=== PATIENT | male | born 1990 | race Caucasian/White ===

== ENCOUNTER 2024-10-04 23:10 | Observation (INO) ==
[2024-10-04] MEDS: MoRPHine SULFATE 4 MG/ML 1 ML CARP\\VIAL IV STA (23:39)
[2024-10-04] MEDS: ONDANSETRON INJ 2 MG/ML 2 ML VIAL IV STA (23:39)
[2024-10-04 23:55] LABS: iSTAT Creatinine 1.3 mg/dl (0.6-1.3); iSTAT Ionized Calcium 1.3 mmol/l (1.12-1.32); iSTAT Potassium 3.9 mmol/L (3.3-5.0)
[2024-10-04 23:58] LABS: Appearance Urine Clear (Clear); Bilirubin Urine Negative (Negative); Blood Urine Negative (Negative); Color Urine Yellow; Glucose Urine UA Negative (Negative); Ketones Urine Negative (Negative); Leukocyte Esterase Urine Negative (Negative); Nitrite Urine Negative (Negative); Protein Urine Negative (Negative); Specific Gravity Urine 1.022 (1.000-1.030); Urobilinogen Urine Negative (Negative); pH Urine 5.5 (4.5-7.5)
[2024-10-04] MEDS: OPTIRAY 320 100ml IV ONE (23:58)
[2024-10-05 00:07] LABS: Basophils # (auto) 0.03 K/uL (0.00-0.20); Basophils % (auto) 0.3 %; Eosinophils % (auto) 0.8 %; Hematocrit (blood only) 45.3 % (42.0-52.0); Hemoglobin 16.2 g/dl (14.0-18.0); Immature Granulocytes # (auto) 0.04 K/uL (0.01-0.20); Immature Granulocytes % (auto) 0.3 %; Lymphocytes # (auto) 2.25 K/uL (1.20-3.40); Mean Corpuscular Hemoglobin 30.2 pg (25.0-34.0); Mean Corpuscular Hgb Conc 35.8 g/dL (32.0-36.0); Mean Corpuscular Volume 84.4 fL (80.0-100.0); Monocytes # (auto) 0.51 K/uL (0.11-0.59); Monocytes % (auto) 4.3 %; Neutrophils # (auto) 8.93 K/uL (1.40-6.50); Neutrophils % (auto) 75.3 %; Platelet Count 287 K/uL (130-400); RDW Coefficient of Variation 11.7 % (11.5-14.5); RDW Standard Deviation 35.5 fL (36.4-46.3); Red Blood Count 5.37 M/uL (4.70-6.10); White Blood Count 11.86 K/ul (4.8-10.8)
[2024-10-05 00:18] LABS: Albumin Globulin Ratio 2.5 (0.9-2); Albumin Level 5.4 gm/dl (3.4-5.0); BUN Creatinine Ratio 16.4 (10-20); Bilirubin,Total 0.6 mg/dl (0.2-1.0); Calcium 10.9 mg/dl (8.6-10.3); Globulin 2.2 gm/dl (2.5-4.0); Potassium 3.9 mmol/L (3.5-5.1); Total Protein 7.6 gm/dl (6.0-8.3)
[2024-10-05] MEDS: fentaNYL citrate PF 100 MCG/2 ML VIAL IV STA ×2 (00:34→01:46)
--- NOTE | 2024-10-05 00:34 | Emergency Department Note ---
ED Visit Note Physician Evaluation Note: Patient was seen in conjunction with the midlevel provider. Please see the midlevel provider note for full details of the patient's visit. I have personally evaluated and examined this patient. Patient presented to the ED with 7 to 8 hours of right lower quadrant abdominal pain with nausea. On my examination the patient does have tenderness in the right lower quadrant without rigidity. CT imaging of the abdomen pelvis was obtained that is suggestive of mild acute appendicitis. Case was discussed with on-call general surgery, Dr. Ellison, and he did evaluate the patient at the bedside and decision was made for operative intervention. Patient was in agreement to this plan and he was admitted in stable condition for definitive care. I agree with assessment and plan of JANNA Maciel DO .
--- NOTE | 2024-10-05 00:37 | CT Scan Report ---
Exam(s): CT ABDOMEN + PELVIS With Contrast IV Amt: 93 ML OPTIRAY 320 EXAM: CT Abdomen and Pelvis With Intravenous Contrast CLINICAL HISTORY: Reason for exam: right lower quadrant pain. TECHNIQUE: Axial computed tomography images of the abdomen and pelvis with intravenous contrast. CTDI is 25.81 mGy and DLP is 1362.65 mGy-cm. Automated exposure control was utilized for the study. A dose lowering technique was utilized adhering to the principles of ALARA. CONTRAST: Patient received 93 ML OPTIRAY 320 of IV contrast COMPARISON: No relevant prior studies available. FINDINGS: Lung bases: Unremarkable. No mass. No consolidation. ABDOMEN: Liver: There is a small probable 0.8 cm cyst in the posterior right hepatic lobe. No additional hepatic abnormalities are noted. Gallbladder and bile ducts: Unremarkable. No calcified stones. No ductal dilation. Pancreas: Unremarkable. No mass. No ductal dilation. Spleen: Unremarkable. No splenomegaly. Adrenals: Unremarkable. No mass. Kidneys and ureters: Unremarkable. No solid mass. No hydronephrosis. Stomach and bowel: Unremarkable. No obstruction. No mucosal thickening. PELVIS: Appendix: The appendix is mildly distended and measures up to 11 mm. There is mild subtle periappendiceal inflammatory stranding. No evidence of perforation or abscess. Findings are consistent with early acute appendicitis. Bladder: Unremarkable. No mass. Reproductive: Unremarkable as visualized. ABDOMEN and PELVIS: Intraperitoneal space: Unremarkable. No free air. No significant fluid collection. Bones/joints: No acute fracture. No dislocation. Soft tissues: Unremarkable. Vasculature: Unremarkable. No abdominal aortic aneurysm. Lymph nodes: Unremarkable. No enlarged lymph nodes. IMPRESSION: The appendix is mildly distended and measures up to 11 mm. There is mild subtle periappendiceal inflammatory stranding. No evidence of perforation or abscess. Findings are consistent with early acute appendicitis. Communications: Call Doctor Appendicitis Electronically signed by: Tenzin Wilson MD 10/05/24 00:36 AM
--- NOTE | 2024-10-05 00:51 | Emergency Department Note ---
ED Provider Note History of Present Illness Chief Complaint: Abdominal Pain Stated Complaint: ABD PAIN, NAUSEA, Time Seen by Provider: 10/04/24 23:19 Source: patient Mode of arrival: ambulatory Limitations: no limitations Patient is a 34-year-old male who presents to the emergency department with complaints of right lower quadrant pain. Patient states that his pain started approximately 5 hours prior to his arrival. Patient notes that he has had some intermittent nausea but denies any vomiting. Patient denies any urinary symptoms. Home Medications Medication Instructions Recorded Confirmed Type No Known Home Medications 10/05/24 10/05/24 History Allergies Allergy/AdvReac Type Severity Reaction Status Date / Time No Known Allergies Allergy Verified 10/05/24 01:21 Past Med/Surg History Problem List Acute appendicitis (Acute) Social History Smoking Status: Current every day smoker Tobacco Type: Cigarettes Preferred Language: Yi Feels Safe at Home: Yes Physical Exam Vital Signs Vital Signs - 24 hr 10/04/24 23:14 10/04/24 23:25 10/04/24 23:37 Temperature 36.6 C Temperature Source Temporal Artery Scan Pulse Rate 82 69 Pulse Rate [Apical] 62 Respiratory Rate 18 18 Respiratory Effort / Characteristics Non-Labored Spontaneous Non-Labored Respiratory Depth Normal Normal Respiratory Pattern Regular Regular Blood Pressure 154/107 H Blood Pressure [Right Arm] 125/95 Blood Pressure Mean 122 Blood Pressure Mean [Right Arm] 105 Pulse Oximetry 100 99 100 Oxygen Delivery Method Room Air Room Air Room Air Sepsis Recent Fever Within 48 Hours No Sepsis New/Unexplained Change in Mental Status N/A Sepsis Action Taken by Nursing No Action Required 10/04/24 23:40 10/04/24 23:43 10/04/24 23:57 Temperature Temperature Source Pulse Rate 82 65 Pulse Rate [Apical] Respiratory Rate 18 Respiratory Effort / Characteristics Respiratory Depth Respiratory Pattern Blood Pressure 125/95 148/93 H Blood Pressure [Right Arm] Blood Pressure Mean 105 126 Blood Pressure Mean [Right Arm] Pulse Oximetry 100 Oxygen Delivery Method Room Air Sepsis Recent Fever Within 48 Hours Sepsis New/Unexplained Change in Mental Status Sepsis Action Taken by Nursing 10/05/24 00:00 10/05/24 00:33 10/05/24 01:00 Temperature Temperature Source Pulse Rate 85 89 74 Pulse Rate [Apical] Respiratory Rate 18 14 18 Respiratory Effort / Characteristics Respiratory Depth Respiratory Pattern Blood Pressure 140/73 117/61 116/61 Blood Pressure [Right Arm] Blood Pressure Mean 95 79 82 Blood Pressure Mean [Right Arm] Pulse Oximetry 92 96 95 Oxygen Delivery Method Room Air Room Air Room Air Sepsis Recent Fever Within 48 Hours Sepsis New/Unexplained Change in Mental Status Sepsis Action Taken by Nursing VITAL SIGNS - Vital signs and nursing notes were reviewed. GENERAL -34-year-old male appearing his stated age who appears to be in moderate pain during exam HEAD - NC/AT. EYES - PERRL with EOMI bilaterally. Conjunctiva pink and moist with no injection noted. LUNGS - Chest wall symmetric without accessory muscle use, intercostals retractions, or central cyanosis. Breath sounds clear throughout all mor[place]. No wheezes, rales, or rhonchi appreciated. CARDIAC - RRR with S1/S2. No murmur, rubs, or gallops appreciated. ABDOMEN - Abdominal contour without pulsations or visible masses. Negative [place]'s or Gross Kohli's Signs. BS normoactive all four quadrants. Moderate tenderness to palpation appreciated in the right lower quadrant. No increased rebound Tenderness. No palpable masses, hepatosplenomegaly, or ascites noted. NEUROLOGIC - Sensory intact to light touch throughout. PSYCH - A&Ox3 and cooperates fully with examiner. Pt is very pleasant and interacts well with examiner. Course Administered Medications Discontinued Medications Fentanyl Citrate (Fentanyl Citrate Pf 100 Mcg/2 Ml Vial) 50 mcg IV NOW STA Stop: 10/05/24 00:27 Last Admin: 10/05/24 00:34 Dose: 50 mcg Documented By: BRANDON Fentanyl Citrate (Fentanyl Citrate Pf 100 Mcg/2 Ml Vial) 50 mcg IV NOW STA Stop: 10/05/24 01:43 Last Admin: 10/05/24 01:46 Dose: 50 mcg Documented By: STONE Piperacillin Sod/Tazobactam Sod (Zosyn) 4.5 gm in 100 mls @ 200 mls/hr IV NOW ONE; Protocol Stop: 10/05/24 01:21 Last Infusion: 10/05/24 01:39 Dose: Infused Documented By: Admin: 10/05/24 01:06 Dose: 200 mls/hr Documented By: STONE Ioversol (Optiray 320 100ml) 100 ml IV ONCE ONE Stop: 10/04/24 23:58 Last Admin: 10/04/24 23:58 Dose: 93 ml Documented By: LASHELL Morphine Sulfate (Morphine Sulfate 4 Mg/Ml 1 Ml Carp\Vial) 4 mg IV NOW STA Stop: 10/04/24 23:25 Last Admin: 10/04/24 23:39 Dose: 4 mg Documented By: STONE Ondansetron HCl (Ondansetron Inj 2 Mg/Ml 2 Ml Vial) 4 mg IV NOW STA Stop: 10/04/24 23:25 Last Admin: 10/04/24 23:39 Dose: 4 mg Documented By: STONE Medical Decision Making Differential Diagnosis Differential diagnoses includes gastritis, gastroenteritis, IBS, small bowel obstruction, pancreatitis, peritonitis, constipation, appendicitis, abdominal abcess, among others. Medical Records Attestation: I reviewed the patient's medical records. Home Medications was personally reviewed by me Laboratory Data Attestation: I reviewed the patient's lab results. 10/04/24 23:35 10/04/24 23:35 Lab Results 10/04/24 10/04/24 Range/Units 23:35 23:43 WBC 11.86 H (4.8-10.8) K/ul RBC 5.37 (4.70-6.10) M/uL Hgb 16.2 (14.0-18.0) g/dl POC Hgb 16.0 (14.0-18.0) g/dl Hct 45.3 (42.0-52.0) % POC Hct 47 (42-52) % MCV 84.4 (80.0-100.0) fL MCH 30.2 (25.0-34.0) pg MCHC 35.8 (32.0-36.0) g/dL RDW Std Deviation 35.5 L (36.4-46.3) fL RDW Coeff of Roberto 11.7 (11.5-14.5) % Plt Count 287 (130-400) K/uL MPV 11.0 (9.4-12.4) fL Immature Gran % (Auto) 0.3 % Neut % (Auto) 75.3 % Lymph % (Auto) 19.0 % [place] % (Auto) 4.3 % Eos % (Auto) 0.8 % Baso % (Auto) 0.3 % Neut # (Auto) 8.93 H (1.40-6.50) K/uL Lymph # (Auto) 2.25 (1.20-3.40) K/uL [place] # (Auto) 0.51 (0.11-0.59) K/uL Eos # (Auto) 0.10 (0.00-0.50) K/uL Baso # (Auto) 0.03 (0.00-0.20) K/uL Immature Gran # (Auto) 0.04 (0.01-0.20) K/uL POC Sodium 139 (135-144) mmol/L Sodium 138 (136-145) mmol/L POC Potassium 3.9 (3.3-5.0) mmol/L Potassium 3.9 (3.5-5.1) mmol/L POC Chloride 102 (101-112) mmol/L Chloride 101 (98-107) mmol/L Carbon Dioxide 28 (21-32) mmol/L POC Total CO2 25 (24-31) mmol/L Anion Gap 9 (3-11) POC Anion Gap 18.0 (16-25) mmol/L POC BUN 19 H (7-18) mg/dl BUN 19 (6-23) mg/dl Creatinine 1.16 (0.6-1.4) mg/dl POC Creatinine 1.3 (0.6-1.3) mg/dl Est Cr Clr Drug Dosing 114.0 ml/min eGFR 84.76 BUN/Creatinine Ratio 16.4 (10-20) Glucose 117 H (70-99(Fasting)) mg/dl POC Glucose (other) 116 H (70-99) mg/dl Calcium 10.9 H (8.6-10.3) mg/dl POC Ioniz Calcium [place] 1.30 (1.12-1.32) mmol/l Total Bilirubin 0.6 (0.2-1.0) mg/dl AST 18 (13-39) U/L ALT 33 (7-52) U/L Alkaline Phosphatase 56 (34-104) U/L Total Protein 7.6 (6.0-8.3) gm/dl Albumin 5.4 H (3.4-5.0) gm/dl Globulin 2.2 L (2.5-4.0) gm/dl Albumin/Globulin Ratio 2.5 H (0.9-2) Lipase 58 (11-82) U/L Urine Color Yellow Urine Appearance Clear (Clear) Urine pH 5.5 (4.5-7.5) Ur Specific [place] 1.022 (1.000-1.030) Urine Protein Negative (Negative) Urine Glucose (UA) Negative (Negative) Urine Ketones Negative (Negative) Urine Blood Negative (Negative) Urine Nitrite Negative (Negative) Urine Bilirubin Negative (Negative) Urine Urobilinogen Negative (Negative) Ur Leukocyte Esterase Negative (Negative) Imaging Data Radiologist's Impression: Abdomen/Pelvis CT 10/04/24 23:25 CR Exam(s): CT ABDOMEN + PELVIS With Contrast IV Amt: 93 ML OPTIRAY 320 EXAM: CT Abdomen and Pelvis With Intravenous Contrast CLINICAL HISTORY: Reason for exam: right lower quadrant pain. TECHNIQUE: Axial computed tomography images of the abdomen and pelvis with intravenous contrast. CTDI is 25.81 mGy and DLP is 1362.65 mGy-cm. Automated exposure control was utilized for the study. A dose lowering technique was utilized adhering to the principles of ALARA. CONTRAST: Patient received 93 ML OPTIRAY 320 of IV contrast COMPARISON: No relevant prior studies available. FINDINGS: Lung bases: Unremarkable. No mass. No consolidation. ABDOMEN: Liver: There is a small probable 0.8 cm cyst in the posterior right hepatic lobe. No additional hepatic abnormalities are noted. Gallbladder and bile ducts: Unremarkable. No calcified stones. No ductal dilation. Pancreas: Unremarkable. No mass. No ductal dilation. Spleen: Unremarkable. No splenomegaly. Adrenals: Unremarkable. No mass. Kidneys and ureters: Unremarkable. No solid mass. No hydronephrosis. Stomach and bowel: Unremarkable. No obstruction. No mucosal thickening. PELVIS: Appendix: The appendix is mildly distended and measures up to 11 mm. There is mild subtle periappendiceal inflammatory stranding. No evidence of perforation or abscess. Findings are consistent with early acute appendicitis. Bladder: Unremarkable. No mass. Reproductive: Unremarkable as visualized. ABDOMEN and PELVIS: Intraperitoneal space: Unremarkable. No free air. No significant fluid collection. Bones/joints: No acute fracture. No dislocation. Soft tissues: Unremarkable. Vasculature: Unremarkable. No abdominal aortic aneurysm. Lymph nodes: Unremarkable. No enlarged lymph nodes. IMPRESSION: The appendix is mildly distended and measures up to 11 mm. There is mild subtle periappendiceal inflammatory stranding. No evidence of perforation or abscess. Findings are consistent with early acute appendicitis. Communications: Call Doctor Appendicitis Electronically signed by: Tenzin Wilson MD 10/05/24 00:36 AM [facility] Narrative Patient is a 34-year-old male who presents to the emergency department with complaints of right lower quadrant pain. Patient states that his pain started approximately 5 hours prior to his arrival. Patient notes that he has had some intermittent nausea but denies any vomiting. Patient denies any urinary symptoms. Patient was evaluated by myself and findings are noted in the physical exam above. Patient was ordered IV placement, lab work, urinalysis, and a CT of the abdomen pelvis. Patient was also ordered morphine and Zofran for his pain and nausea. Patient's lab work resulted and the patient had an elevated white blood cell count of 11.86. The rest of the patient's lab work was unremarkable. There is no indication of anemia or electrolyte imbalance. The patient's urinalysis resulted and was negative, with no signs of blood or infection. Upon reevaluation of the patient he stated that his pain was still an 8/10 and felt that it was increasing again. Patient was ordered a dose of IV fentanyl for his pain. Dr. Vinicio Ellison of general surgery spoke with Dr. Thao regarding this patient to inquire if the patient may have an acute appendicitis. We informed Dr. lElison that we were still waiting on the radiologist read of his CT, but the patient was presenting with symptoms and an exam consistent with appendicitis. Patient CT was interpreted by radiology to show an acute early appendicitis. This finding is consistent with the patient's presentation and complaints. Dr. Vinicio Ellison arrived in the emergency department is made aware that the patient did have an acute appendicitis. I gave Dr. Ellison a brief report on the patient and let him know that the patient has had 2 doses of pain medication, with still complaining of some discomfort and that he has not had any p.o. food since approximately 330 this afternoon and drank some water approximately 3 hours [address] I told Dr. Ellison that I made the patient aware that he was likely going to be going to the OR and the Dr. Ellison would be in to see him. Please refer to Dr. Ellison's documentation for further evaluation and management of this patient. The patient will be going to the OR momentarily. Impression Acute appendicitis Discharge Plan Visit Data Chief Complaint: Abdominal Pain Stated Complaint: ABD PAIN, NAUSEA, ED Provider: Romain Thao ED Midlevel Provider: Gloria Hernandes Discharge Problem: Acute appendicitis Patient Disposition: Being Evaluated by Surgeon Forms Stand Alone Forms: [employer] Prescriptions Prescriptions: No Action No Known Home Medications Referrals Referrals: PCP,NO [Primary Care Provider] - Discharge Problem: Acute appendicitis Qualifiers: Acute appendicitis type: unspecified acute appendicitis type Qualified Code(s): K35.80 - Unspecified acute appendicitis
[2024-10-05] MEDS: PIPERACILLIN/TAZOBACTAM 4.5 GM/100 ML BAG IV ONE (01:06)
--- NOTE | 2024-10-05 01:09 | History & Physical Report ---
Date of Service October 05, 2024 Assessment & Plan (1) Acute appendicitis: Plan 34-year-old gentleman with acute appendicitis. I discussed the risks and benefits of a laparoscopic appendectomy with him. All his questions were answered. We also discussed postoperative recovery and restrictions. He is agreeable to proceed. Consent has been obtained. We will take him to the operating room at the earliest convenience. History of Present Illness Primary Care Provider: NO PCP 34-year-old gentleman presents with a 7-hour history of abdominal pain. He began in the mid abdomen and has progressed to the right lower quadrant. It is sharp and stabbing character. It is accompanied with nausea. He has not vomited. He denies fevers or chills. He has had 2 loose bowel movements this afternoon. Last food was 10 hours ago. Past Med/Surg History Problem List Acute appendicitis (Acute) Social History Smoking Status: Current every day smoker Tobacco Type: Cigarettes Preferred Language: [place] Feels Safe at Home: Yes Review of Systems Review of Systems: All systems reviewed & are unremarkable except as noted in HPI & below Physical Exam Constitutional: WD/WN, vitals as above Eyes: PERRL, conjunctivae normal, anicteric sclerae Neck: trachea midline, no thyromegaly Respiratory: normal respiratory effort; no respiratory distress and no labored breathing Cardiovascular: Rate/Rhythm: regular rate and regular rhythm Gastrointestinal (Abdomen): Inspection/Auscultation: abdomen normal to inspection; abdomen not distended Percussion/Palpation: + abdomen tender ( RLQ) and abdomen soft; no guarding and abdomen not rigid positive Rovsing sign Skin: no rashes, warm and dry Psychiatric: A+Ox3, euthymic affect Results & Data Results & Data Vital Signs (Past 12 Hours) Vital Signs Temp Pulse Pulse Resp BP BP Pulse Ox 10/05/24 00:33 89 14 117/61 96 10/05/24 00:00 85 18 140/73 92 10/04/24 23:57 148/93 H 10/04/24 23:43 65 10/04/24 23:40 82 18 125/95 100 10/04/24 23:37 69 100 10/04/24 23:25 62 18 125/95 99 10/04/24 23:14 36.6 C 82 18 154/107 H 100 O2 Del Method 10/05/24 00:33 Room Air 10/05/24 00:00 Room Air 10/04/24 23:57 10/04/24 23:43 10/04/24 23:40 Room Air 10/04/24 23:37 Room Air 10/04/24 23:25 Room Air 10/04/24 23:14 Room Air Laboratory Results 10/04/24 10/04/24 Range/Units 23:43 23:35 WBC 11.86 H (4.8-10.8) K/ul RBC 5.37 (4.70-6.10) M/uL Hgb 16.2 (14.0-18.0) g/dl POC Hgb 16.0 (14.0-18.0) g/dl Hct 45.3 (42.0-52.0) % POC Hct 47 (42-52) % MCV 84.4 (80.0-100.0) fL MCH 30.2 (25.0-34.0) pg MCHC 35.8 (32.0-36.0) g/dL RDW Std Deviation 35.5 L (36.4-46.3) fL RDW Coeff of Roberto 11.7 (11.5-14.5) % Plt Count 287 (130-400) K/uL MPV 11.0 (9.4-12.4) fL Immature Gran % (Auto) 0.3 % Neut % (Auto) 75.3 % Lymph % (Auto) 19.0 % [place] % (Auto) 4.3 % Eos % (Auto) 0.8 % Baso % (Auto) 0.3 % Neut # (Auto) 8.93 H (1.40-6.50) K/uL Lymph # (Auto) 2.25 (1.20-3.40) K/uL [place] # (Auto) 0.51 (0.11-0.59) K/uL Eos # (Auto) 0.10 (0.00-0.50) K/uL Baso # (Auto) 0.03 (0.00-0.20) K/uL Immature Gran # (Auto) 0.04 (0.01-0.20) K/uL POC Sodium 139 (135-144) mmol/L Sodium 138 (136-145) mmol/L POC Potassium 3.9 (3.3-5.0) mmol/L Potassium 3.9 (3.5-5.1) mmol/L POC Chloride 102 (101-112) mmol/L Chloride 101 (98-107) mmol/L Carbon Dioxide 28 (21-32) mmol/L POC Total CO2 25 (24-31) mmol/L Anion Gap 9 (3-11) POC Anion Gap 18.0 (16-25) mmol/L POC BUN 19 H (7-18) mg/dl BUN 19 (6-23) mg/dl Creatinine 1.16 (0.6-1.4) mg/dl POC Creatinine 1.3 (0.6-1.3) mg/dl Est Cr Clr Drug Dosing 114.0 ml/min eGFR 84.76 BUN/Creatinine Ratio 16.4 (10-20) Glucose 117 H (70-99(Fasting)) mg/dl POC Glucose (other) 116 H (70-99) mg/dl Calcium 10.9 H (8.6-10.3) mg/dl POC Ioniz Calcium [place] 1.30 (1.12-1.32) mmol/l Total Bilirubin 0.6 (0.2-1.0) mg/dl AST 18 (13-39) U/L ALT 33 (7-52) U/L Alkaline Phosphatase 56 (34-104) U/L Total Protein 7.6 (6.0-8.3) gm/dl Albumin 5.4 H (3.4-5.0) gm/dl Globulin 2.2 L (2.5-4.0) gm/dl Albumin/Globulin Ratio 2.5 H (0.9-2) Lipase 58 (11-82) U/L Urine Color Yellow Urine Appearance Clear (Clear) Urine pH 5.5 (4.5-7.5) Ur Specific [place] 1.022 (1.000-1.030) Urine Protein Negative (Negative) Urine Glucose (UA) Negative (Negative) Urine Ketones Negative (Negative) Urine Blood Negative (Negative) Urine Nitrite Negative (Negative) Urine Bilirubin Negative (Negative) Urine Urobilinogen Negative (Negative) Ur Leukocyte Esterase Negative (Negative) Diagnostic Findings ADDENDUM: 10/05/24 00:46 Call Doctor Regarding Appendicitis, called Dr. Thao on 10/05 00:46 (-05:00) Electronically signed by: Tenzin Wilson MD Electronically signed by: Tenzin Wilson MD 10/05/24 00:36 AM ADDENDUM END Exam(s): CT ABDOMEN + PELVIS With Contrast IV Amt: 93 ML OPTIRAY 320 EXAM: CT Abdomen and Pelvis With Intravenous Contrast CLINICAL HISTORY: Reason for exam: right lower quadrant pain. TECHNIQUE: Axial computed tomography images of the abdomen and pelvis with intravenous contrast. CTDI is 25.81 mGy and DLP is 1362.65 mGy-cm. Automated exposure control was utilized for the study. A dose lowering technique was utilized adhering to the principles of ALARA. CONTRAST: Patient received 93 ML OPTIRAY 320 of IV contrast COMPARISON: No relevant prior studies available. FINDINGS: Lung bases: Unremarkable. No mass. No consolidation. ABDOMEN: Liver: There is a small probable 0.8 cm cyst in the posterior right hepatic lobe. No additional hepatic abnormalities are noted. Gallbladder and bile ducts: Unremarkable. No calcified stones. No ductal dilation. Pancreas: Unremarkable. No mass. No ductal dilation. Spleen: Unremarkable. No splenomegaly. Adrenals: Unremarkable. No mass. Kidneys and ureters: Unremarkable. No solid mass. No hydronephrosis. Stomach and bowel: Unremarkable. No obstruction. No mucosal thickening. PELVIS: Appendix: The appendix is mildly distended and measures up to 11 mm. There is mild subtle periappendiceal inflammatory stranding. No evidence of perforation or abscess. Findings are consistent with early acute appendicitis. Bladder: Unremarkable. No mass. Reproductive: Unremarkable as visualized. ABDOMEN and PELVIS: Intraperitoneal space: Unremarkable. No free air. No significant fluid collection. Bones/joints: No acute fracture. No dislocation. Soft tissues: Unremarkable. Vasculature: Unremarkable. No abdominal aortic aneurysm. Lymph nodes: Unremarkable. No enlarged lymph nodes. IMPRESSION: The appendix is mildly distended and measures up to 11 mm. There is mild subtle periappendiceal inflammatory stranding. No evidence of perforation or abscess. Findings are consistent with early acute appendicitis. Communications: Call Doctor Appendicitis Electronically signed by: Tenzin Wilson MD 10/05/24 00:36 AM (1) Acute appendicitis Acute appendicitis type: unspecified acute appendicitis type Qualified Code(s): K35.80 - Unspecified acute appendicitis
--- NOTE | 2024-10-05 01:35 | Anesthesiology Consultation ---
Date of Service October 05, 2024 Assessment & Plan Chart Review Chart Review: Acceptable Risk for Surgery Consults Requested none History Surgery Operation Date: 10/05/24 01:10 Proposed Procedures p Laparoscopic Appendectomy - Vinicio Ellison MD Height/Weight Height: 6 ft 2 in Weight: 101.2 kg Allergies Allergy/AdvReac Type Severity Reaction Status Date / Time No Known Allergies Allergy Verified 10/05/24 01:21 Medications Home Medications Medication Instructions Recorded Confirmed Last Taken No Known Home Medications 10/05/24 10/05/24 Unknown NPO Date Last Intake of Fluids: 10/04/24 Time Last Intake of Fluids: 21:30 Date Last Intake of Solids: 10/04/24 Time Last Intake of Solids: 16:00 Social History Smoking Status: Current every day smoker Physical Exam Vital Signs Last Vital Signs Temp 36.6 C 10/04/24 23:14 Pulse 74 10/05/24 01:00 Resp 18 10/05/24 01:00 BP 116/61 10/05/24 01:00 Pulse Ox 95 10/05/24 01:00 O2 Del Method Room Air 10/05/24 01:00 Testing Laboratory Results 10/04/24 23:35 10/04/24 23:35 Urine Color Yellow 10/04/24 23:35 Urine Appearance Clear (Clear) 10/04/24 23:35 Urine pH 5.5 (4.5-7.5) 10/04/24 23:35 Ur Specific [place] 1.022 (1.000-1.030) 10/04/24 23:35 Urine Protein Negative (Negative) 10/04/24 23:35 Urine Glucose (UA) Negative (Negative) 10/04/24 23:35 Urine Ketones Negative (Negative) 10/04/24 23:35 Urine Nitrite Negative (Negative) 10/04/24 23:35 Ur Leukocyte Esterase Negative (Negative) 10/04/24 23:35 10/04/24 23:43 POC Glucose (other) 116 H
[2024-10-05] MEDS ORDERED: ePHEDrine sulfate 50 MG/ML AMP IV PRN (01:36)
[2024-10-05] MEDS ORDERED: ONDANSETRON INJ 2 MG/ML 2 ML VIAL IV PRN ×2 (01:36→04:33)
[2024-10-05] MEDS ORDERED: PROMETHAZINE HCL 6.25 MG in SODIUM CHLORIDE 0.9% 50 ML IV PRN (01:36)
[2024-10-05] MEDS ORDERED: fentaNYL citrate PF 100 MCG/2 ML VIAL IV PRN (01:36)
[2024-10-05] MEDS ORDERED: ATROPINE SULFATE 0.1 MG/ML 10ML SYR IV PRN (01:36)
[2024-10-05] MEDS ORDERED: MIDAZOLAM HCL 1 MG/ML 2ML VIAL ONE (01:40)
[2024-10-05] MEDS ORDERED: PROPOFOL IV EMULSION 10 MG/ML 20 ML VIAL IV ONE (01:41)
[2024-10-05] MEDS ORDERED: fentaNYL citrate PF 100 MCG/2 ML VIAL ONE ×2 (01:41→03:07)
[2024-10-05] MEDS ORDERED: ROCURONIUM BROMIDE 10 MG/ML 5 ML VIAL IV ONE ×2 (01:41→02:49)
[2024-10-05] MEDS ORDERED: LIDOCAINE 2% 2 ML VIAL/AMP(20MG/ML) INFIL ONE (01:41)
[2024-10-05] MEDS ORDERED: ONDANSETRON INJ 2 MG/ML 2 ML VIAL ONE (01:41)
[2024-10-05] MEDS ORDERED: DEXAMETHASONE SOD INJ 4 MG/ML VIAL ONE (01:41)
[2024-10-05] MEDS ORDERED: SUGAMMADEX SODIUM 200 MG/2 ML VIAL IV ONE ×2 (01:47→03:03)
--- NOTE | 2024-10-05 03:03 | Operative Report ---
Post Operative Report Pre & Post Diagnosis Operation Date: 10/05/24 01:10 Pre-Op Diagnosis: Appendicitis Post-Op Diagnosis: Appendicitis I identified the patient and participated in the time-out.: Yes Procedure Operation Date: 10/05/24 01:10 Actual Procedures p Laparoscopic Appendectomy(Not Applicable) - Vinicio Ellison MD Surgeon Vinicio Ellison MD Pneumatic Tool Operator None Estimated Blood Loss 5 Findings Consistent with Post-Op Diagnosis acute appendicitis, no perforation Specimens appendix Drains none Anesthesia Type General Complications none Description of Procedure the patient was taken to the operating room, and placed supine on the operating table. A timeout was performed, perioperative antibiotics were administered, SCD boots were placed. After adequate anesthesia and analgesia was obtained, the abdomen was prepped and draped in the normal sterile fashion. A 1 cm incision was made in the supraumbilical region and carried down to the level of the fascia. A trach hook was used to grasp the fascia and elevated and a varies needle was used to enter the abdominal cavity. The abdomen was insufflated to a pressure of 15 mmHg, and a 5 mm trocar was placed in this location. A 5 mm 30 degree laparoscope was placed into the abdominal cavity, and the abdomen was surveyed. The patient was placed in Trendelenburg and slightly to the left. One 5 mm trocar was placed in the right upper quadrant, and one 12 mm trocar was placed in the left lower quadrant under direct visualization. The right colon was identified and traced down to the cecum. The appendix was identified and elevated anteriorly and medially. A window was created at the base of the appendix with a [place] dissector. The Endo GILDARDO stapler was used to transect the appendix at its base through noninflamed tissue, and subsequently the mesoappendix. The appendix was placed in an Endo Catch bag, and removed via the left lower quadrant port site. Attention was turned to hemostasis, which was excellent. The abdomen was copiously irrigated and suctioned free, and again hemostasis was found to be excellent. All trochars removed under direct visualization. The abdomen was desufflated. The fascia in the 12 mm port site was closed with a 0 Vicryl suture. The skin was closed with a running 4-0 Monocryl subcuticular stitch. Dermabond was applied. The patient tolerated the procedure without complication, and was transferred in stable condition to the PACU. All instrument, needle, and sponge counts were correct at the end of the case. I attest to the content of the Intraoperative Record and any orders documented therein. Any exceptions are noted below.
[2024-10-05] MEDS ORDERED: HYDROmorphone INJ 1 MG/ML SYRINGE ONE (03:11)
[2024-10-05] MEDS: BUPIVACAINE/EPINEPHRINE 0.5% MPF 1:200,000 30 ML VIAL ONE (03:20)
[2024-10-05] MEDS: HYDROmorphone INJ 2 MG/ML SYR/VIAL IV PRN (03:22)
[2024-10-05] MEDS ORDERED: MoRPHine SULFATE 4 MG/ML 1 ML CARP\\VIAL IV PRN (04:33)
[2024-10-05] MEDS ORDERED: MoRPHine SULFATE 2 MG/ML CARP IV PRN (04:33)
[2024-10-05] MEDS ORDERED: oxyCODONE/ACETAMINOPHEN 5mg/325mg TAB PO PRN (04:33)
[2024-10-05] MEDS ORDERED: KETOROLAC 30 MG/ML VIAL IV PRN (04:33)
[2024-10-05] MEDS ORDERED: PROMETHAZINE 12.5 MG/50.5 ML BAG IV PRN (04:33)
[2024-10-05] MEDS ORDERED: PROMETHAZINE 25 MG/51 ML BAG IV PRN (04:33)
[2024-10-05] MEDS ORDERED: diphenhydrAMINE Capsule 25 MG CAP PO PRN (04:33)
[2024-10-05 04:34] VITALS: RESP 16
[2024-10-05] MEDS: HYDROmorphone INJ 1 MG/ML SYRINGE ONE (04:35)
[2024-10-05 06:33] VITALS: BP 126/79; PULSE 94; TEMP 98.2; O2SAT 98
--- NOTE | 2024-10-05 07:01 | Anesthesiology Progress Note ---
Date of Service October 05, 2024 Anesthesia Post Procedure Vital Signs Vital Signs: Temp Pulse Pulse Pulse Resp BP BP 10/05/24 06:31 36.8 C 94 H 16 126/79 10/05/24 05:26 36.7 C 90 16 136/73 10/05/24 05:02 36.7 C 92 H 16 141/85 H 10/05/24 04:35 10/05/24 04:35 36.8 C 90 15 121/80 10/05/24 04:33 36.8 C 90 16 121/80 10/05/24 04:07 36.5 C 87 18 134/87 10/05/24 03:57 37.1 C 82 18 131/82 10/05/24 03:47 36.9 C 85 18 138/83 10/05/24 03:37 36.9 C 84 20 121/93 10/05/24 03:27 36.8 C 79 20 148/87 H 10/05/24 03:17 36.5 C 75 22 144/94 H 10/05/24 01:30 79 18 116/69 10/05/24 01:00 74 18 116/61 10/05/24 00:33 89 14 117/61 10/05/24 00:00 85 18 140/73 10/04/24 23:57 148/93 H 10/04/24 23:43 65 10/04/24 23:40 82 18 125/95 10/04/24 23:37 69 10/04/24 23:25 62 18 125/95 10/04/24 23:14 36.6 C 82 18 154/107 H Pulse Ox O2 Del Method O2 Flow Rate 10/05/24 06:31 98 Nasal Cannula 2 10/05/24 05:26 97 Nasal Cannula 2 10/05/24 05:02 97 Nasal Cannula 2 10/05/24 04:35 Nasal Cannula 2 10/05/24 04:35 93 Nasal Cannula 2 10/05/24 04:33 93 Nasal Cannula 2 10/05/24 04:07 98 Nasal Cannula 2 10/05/24 03:57 96 Nasal Cannula 2 10/05/24 03:47 97 Nasal Cannula 2 10/05/24 03:37 98 Oxymask 2 10/05/24 03:27 98 Oxymask 2 10/05/24 03:17 100 Oxymask 5 10/05/24 01:30 95 Room Air 10/05/24 01:00 95 Room Air 10/05/24 00:33 96 Room Air 10/05/24 00:00 92 Room Air 10/04/24 23:57 10/04/24 23:43 10/04/24 23:40 100 Room Air 10/04/24 23:37 100 Room Air 10/04/24 23:25 99 Room Air 10/04/24 23:14 100 Room Air Pain Intensity Right Lower Abdomen: Pain Intensity: 0 Transfer of Care Handoff Completed per policy Notes Mental Status: alert / awake / arousable and participated in evaluation Patient Amnestic to Procedure: Yes Nausea / Vomiting: adequately controlled Pain: adequately controlled Airway Patency, RR, SpO2: stable & adequate BP & HR: stable & adequate Hydration State: stable & adequate Anesthetic Complications: no major complications apparent
[2024-10-05] MEDS: oxyCODONE/ACETAMINOPHEN 5mg/325mg TAB PO PRN (07:32)
--- NOTE | 2024-10-05 09:29 | Discharge Summary ---
Date of Service October 05, 2024 Admission HPI Per Admitting Provider 34-year-old gentleman presents with a 7-hour history of abdominal pain. He began in the mid abdomen and has progressed to the right lower quadrant. It is sharp and stabbing character. It is accompanied with nausea. He has not vomited. He denies fevers or chills. He has had 2 loose bowel movements this afternoon. Last food was 10 hours ago. Admission Exam Per Admitting Provider Constitutional: WD/WN, vitals as above Eyes: PERRL, conjunctivae normal, anicteric sclerae Neck: trachea midline, no thyromegaly Respiratory: normal respiratory effort; no respiratory distress and no labored breathing Cardiovascular: Rate/Rhythm: regular rate and regular rhythm Gastrointestinal (Abdomen): Inspection/Auscultation: abdomen normal to inspection; abdomen not distended Percussion/Palpation: + abdomen tender ( RLQ) and abdomen soft; no guarding and abdomen not rigid positive Rovsing sign Skin: no rashes, warm and dry Psychiatric: A+Ox3, euthymic affect Principal Diagnosis acute appendicitis Discharge Data Allergies Allergy/AdvReac Type Severity Reaction Status Date / Time No Known Allergies Allergy Verified 10/05/24 01:21 Consultations 10/05/24 00:52 Consult General Surgery Stat Procedures Performed Operation Date: 10/05/24 01:10 Actual Procedures p Laparoscopic Appendectomy(Not Applicable) - Vinicio Ellison MD Ordered Studies 10/04/24 23:25 CT abd pelvis IV con only Stat Hospital Course (1) Acute appendicitis: Plan Patient was admitted through the ED and underwent evaluation for acute abdominal pain. He was found to have acute appendicitis. He was taken to the OR and underwent an uncomplicated laparoscopic appendectomy.He did well postop was am bulating tolerating a diet. Continue to progress and was ready for discharge on postoperative day #1. Total Time Total Time Spent Total Time Spent (In Minutes): 15 minutes Discharge Plan Discharge Items Patient Disposition: Home - Self-Care Reason For Visit: POSTOP APPENDECTOMY Discharge Diagnosis: acute appendicitis Activity: Per Instructions section Lifting: No more than 25 pounds Bathing: No limitations Bathing Comment: Shower tonight Sexual Activity: When tolerated Exercise/Sports: Wait until after follow-up appointment Driving/Machine Use: Resume 3 days after discharge Weightbearing: Full weightbearing Non-emergency contact: Surgeon Call non-emergency contact if: your pain is concerning for you, your temperature is above 101.5 and your wound pain has increased Follow-up/Referrals: PCP,NO [Primary Care Provider] - Diet: Regular Addtl Attending Provider Instructions: see below Addtl Weatherization Coordinator Provider Instructions: Post-Surgical ~Discharge Instructions Activity Recommendations: - Lifting limitation: (20 pounds for 3-4 weeks), - Exercise/sex/sports limit: (nonstrenuous for 2 weeks), - Driving or machine use limit: (none after 3 days post-op as long as pain free and no longer taking narcotic pain medication), - Shower/bathe limit: (may shower tonight, no submerging incisions underwater for 2 weeks) - Call the surgeon's office with any questions or concerns - ; ex. temperature higher than 101.5 degrees F, excessive bleeding or pain Diet: - Resume previous diet, regular as tolerated. Medications: - Resume previous medications unless instructed otherwise by your surgeon. - May alternate extra strength Tylenol and Ibuprofen as needed for mild to moderate pain - Tylenol 659mg every 6 hours as needed - Ibuprofen 600 mg every 6 hours as needed, take with food - Percocet 1 every 6 hours, as needed for moderate to severe pain. Narcotics may cause nausea on an empty stomach, please eat before taking pain pills - Recommend daily stool softener (Colace) while taking narcotic pain medication to prevent constipation or straining. Drink plenty of water daily. Follow-up: - If not already scheduled, please call the office to schedule a two week follow-up appointment. Office number Pending Studies at Discharge: No Stand-Alone Forms: [employer], Smoking Cessation Medications and DC Order Prescriptions: New oxycodone-acetaminophen [Percocet] 5-325 mg tablet 1 tab PO Q6H PRN (Reason: pain) Qty: 14 0RF Discharge Orders: Discharge Order (Routine); Ordered 10/05/24 Ordered By: Holden Medrano Admission Data Admit Date/Time: 10/05/24 03:06 Attending Provider: Vinicio Ellison Admit Provider: Vinicio Ellison Primary Care Provider: PCP,NO Other Providers: Vinicio Ellison
[2024-10-05] MEDS ORDERED: ENOXAPARIN INJ 40 MG/0.4 ML SYR SQ SCH (12:00)
== END 2024-10-05 11:21 | disposition home or self-care (01) ==
LOC: ED 23:10 → 3W 10-05 02:04 → OR 10-05 02:04